=== PATIENT | male | born 1960 | race Caucasian/White ===

== ENCOUNTER 2017-01-16 06:11 | Emergency (ER) | payer OTHER ==
[~2017-01-16] VITALS: Ht 182.9 cm; Wt 91.6 kg
[2017-01-16 06:19] VITALS: Ht 182.9 cm; Wt 91.6 kg
[2017-01-16] MEDS ORDERED: SODIUM CHLORIDE 0.9% 1000ML 2,000 ML IV STA (06:39)
[2017-01-16] MEDS ORDERED: ONDANSETRON 8 MG/54 ML D5W IV STA (06:39)
[2017-01-16] MEDS ORDERED: FAMOTIDINE 20MG/102 ML D5W IV STA (06:40)
[2017-01-16 06:52] LABS: URINE APPEARANCE CLEAR (CLEAR); URINE BILIRUBIN NEG (NEG); URINE COLOR YELLOW; URINE NITRITE NEG (NEG); URINE PH 5.5 (4.5-7.5); URINE SPECIFIC GRAVITY 1.039 (1.000-1.030); UROBILINOGEN NEG (NEG)
[2017-01-16 06:53] LABS: MANUAL MICROSCOPIC REQUIRED? NO; REVIEW REQ? NO
[2017-01-16 06:53] LABS: BASO % 0.2 %; BASO ABS # 0.02 K/uL (0-0.2); COMPLETE YES; EOS % 0.5 %; HEMATOCRIT 46.9 % (42-52); IG% 0.3 %; LYMPH % 14.1 %; LYMPH ABS # 1.68 K/uL (1.2-3.4); MEAN CELL VOLUME 88.5 fL (80-100); MEAN CORPUSCULAR HEMOGLOBIN 28.9 pg (25-34); MEAN CORPUSCULAR HGB CONC 32.6 g/dl (32-36); MEAN PLATELET VOLUME 10.7 fL (7.4-10.4); MONO % 4.9 %; PLATELET COUNT 284 K/uL (130-400); WHITE BLOOD COUNT 11.95 K/uL (4.8-10.8)
[2017-01-16] MEDS ORDERED: LIRA18IN SQ (06:53)
[2017-01-16] MEDS ORDERED: EMPA1TAB PO (06:55)
[2017-01-16] MEDS ORDERED: GABA-113 PO (06:56)
[2017-01-16] MEDS ORDERED: LISI-725 PO (06:56)
[2017-01-16] MEDS ORDERED: DiphenhydrAMINE HCL 50 MG/ML VIAL IV STA (07:09)
[2017-01-16] MEDS ORDERED: METOCLOPRAMIDE HCL INJ 5 MG/ML 2 ML VIAL IV STA (07:09)
[2017-01-16 07:11] LABS: BUN/CREATININE RATIO 13.9 (10-20); CALCIUM 9.8 mg/dl (8.5-10.1); CREATININE 1.5 mg/dl (0.60-1.40)
[2017-01-16] MEDS ORDERED: SODIUM CHLORIDE 0.9% 1000ML 1,000 ML IV STA ×2 (07:29→14:55)
[2017-01-16] MEDS ORDERED: OPTIRAY 320 IV PRN (15:15)
--- NOTE | 2017-01-16 15:53 | DIAGNOSTIC IMAGING REPORT ---
CT OF THE ABDOMEN AND PELVIS WITH CONTRAST CLINICAL HISTORY: Upper abdominal pain and vomiting. COMPARISON STUDY: None. TECHNIQUE: Following IV administration of 118 mL of Optiray-320, axial images of the abdomen and pelvis were obtained from the lung bases to the proximal femurs. Images were reviewed in the axial, sagittal, and coronal planes. IV contrast was administered without complication. CT DOSE: 616.61 mGy.cm FINDINGS: There is suspected fatty infiltration of the liver. The spleen, adrenal glands, kidneys and pancreas are unremarkable. There is no hydronephrosis or hydroureter. There is no perinephric or pericholecystic infiltration. The caliber and wall thickness of small and large bowel are normal. The appendix is normal. There is moderate vascular calcification. IMPRESSION: 1. No acute process within the abdomen or pelvis. 2. Fatty liver. Electronically signed by: Leroy Medina M.D. 01/16/2017 3:52 PM Dictated Date/Time: 01/16/2017 3:45 PM
[2017-01-16] MEDS ORDERED: PANTOprazole SOD 40 MG TAB PO STA (16:13)
[2017-01-16 16:15] VITALS: BP 117/69; PULSE 96; TEMP 36.6; O2SAT 93
[2017-01-16] MEDS ORDERED: ONDANSETRON HOME PACK 4MG OD TAB PO ONE (16:15)
[2017-01-16] MEDS ORDERED: PANT40TA PO (16:19)
[2017-01-16] MEDS ORDERED: ONDA4TAB10 SL (16:19)
--- NOTE | 2017-01-16 16:26 | EMERGENCY ROOM VISIT NOTE ---
History Report prepared by Suri: Stan Garrido Under the Supervision of: Dr. Reynold Vann M.D. First contact with patient: 06:37 Chief Complaint: VOMITING Stated Complaint: VOMITING,DIABETIC Nursing Triage Summary: pt reports vomiting and abd pain since yesterday. pt reports that at 0030 pt started to have bloody emesis. hx DM. History of Present Illness The patient is a 56 year old male who presents to the Emergency Room with complaints of intermittent vomiting that started yesterday. He rates his discomfort as a 6/10 in severity. The patient states that he was experiencing upper abdominal pain, chills, nausea, and vomiting yesterday starting at 1200. He denies taking any other medication other than his daily medications in the morning. The patient reports that today he started to experience hematemesis and describes it as "coffee grounds". He states that he has been dehydrated due to how many times he has been vomiting. The patient states that he has had similar symptoms along with a syncopal episode in the past, but thought it was due to his history of Diabetes Type 2, which he takes insulin for. He reports that he went to the doctors for his previous experience where they diagnosed him with a virus and admitted him for a couple of days. The patient states that these symptoms eventually resolved on their own. He reports that he his last bowel movement was two to three days ago due to his constant constipation from his neuropathy. He admits that he is allergic to Codeine. The patient denies any pain radiating to his back, a history of ulcers, consuming alcohol, LOC, headache, fevers, diaphoresis, visual changes, neck pain, chest pain, breathing difficulties, back pain, melena, hematochezia, urinary symptoms, numbness, weakness, lymphadenopathy, rash, or other complaints. Source of History: patient Onset: yesterday Position: other (global) Symptom Intensity: 6/10 Timing: intermittent Associated Symptoms: + chills, + nausea, + abdominal pain Review of Systems See HPI for pertinent positives and negatives. A total of ten systems were reviewed and were otherwise negative. Past Medical & Surgical Medical Problems: (1) Constipation (2) Diabetes (3) Hypertension Family History Patient reports no known family medical history. Social History Smoking Status: Never Smoker Alcohol Use: none Drug Use: none Current/Historical Medications Scheduled Empagliflozin (Jardiance), Unknown Dose PO DAILY Gabapentin (Neurontin), Unknown Dose PO TID Liraglutide (Victoza), 1.8 ML SQ DAILY Lisinopril (Zestril), Unknown Dose PO DAILY Ondasetron Odt (Zofran Odt), 4 MG SL Q6H Pantoprazole (Protonix), 40 MG PO DAILY Allergies Coded Allergies: Codeine (Verified Allergy, Unknown, unsure, young, 01/16/17) Physical Exam Vital Signs Date Time Temp Pulse Resp B/P (MAP) Pulse Ox O2 Delivery O2 Flow Rate FiO2 01/16/17 15:08 96 01/16/17 13:29 103 15 117/69 93 Room Air 01/16/17 12:00 105 20 119/78 97 Room Air 01/16/17 11:05 111 17 116/61 92 Room Air 01/16/17 10:00 113 13 111/74 94 Room Air 01/16/17 09:00 114 14 108/68 93 Room Air 01/16/17 08:08 91 15 103/57 91 Room Air 01/16/17 07:16 108 01/16/17 07:06 108 16 155/92 92 Room Air 01/16/17 06:19 36.6 114 20 140/82 99 Room Air Physical Exam GENERAL: Awake, alert, non ill appearing, no acute distress HEAD: Normocephalic, atraumatic. No edema. EYES: Normal conjunctiva. Sclera non-icteric. OROPHARYNX: Lips, tongue, and mucosa unremarkable. No erythema or exudate. NECK: Supple. No nuchal rigidity. FROM. No adenopathy. RESPIRATORY: CTA bilaterally. No wheezes rales or rhonchi. CARDIAC: Borderline tachycardic rate, normal rhythm. ABDOMEN: Soft, non distended. epigastric tenderness to palpation. No rebound or guarding. MUSCULOSKELETAL: Atraumatic. No edema. NEURO: Normal sensorium. SKIN: No rash or jaundice noted Medical Decision & Procedures Laboratory Results 01/16/17 06:30 Red Blood Count 5.30, Mean Corpuscular Volume 88.5, Mean Corpuscular Hemoglobin 28.9, Mean Corpuscular Hemoglobin Concent 32.6, Mean Platelet Volume 10.7, Neutrophils (%) (Auto) 80.0, Lymphocytes (%) (Auto) 14.1, Monocytes (%) (Auto) 4.9, Eosinophils (%) (Auto) 0.5, Basophils (%) (Auto) 0.2, Neutrophils # (Auto) 9.57, Lymphocytes # (Auto) 1.68, Monocytes # (Auto) 0.59, Eosinophils # (Auto) 0.06, Basophils # (Auto) 0.02 01/16/17 06:30 Test 01/16/17 06:30 01/16/17 06:31 01/16/17 06:35 White Blood Count 11.95 K/uL (4.8-10.8) Red Blood Count 5.30 M/uL (4.7-6.1) Hemoglobin 15.3 g/dL (14.0-18.0) Hematocrit 46.9 % (42-52) Mean Corpuscular Volume 88.5 fL (80-100) Mean Corpuscular Hemoglobin 28.9 pg (25-34) Mean Corpuscular Hemoglobin Concent 32.6 g/dl (32-36) Platelet Count 284 K/uL (130-400) Mean Platelet Volume 10.7 fL (7.4-10.4) Neutrophils (%) (Auto) 80.0 % Lymphocytes (%) (Auto) 14.1 % Monocytes (%) (Auto) 4.9 % Eosinophils (%) (Auto) 0.5 % Basophils (%) (Auto) 0.2 % Neutrophils # (Auto) 9.57 K/uL (1.4-6.5) Lymphocytes # (Auto) 1.68 K/uL (1.2-3.4) Monocytes # (Auto) 0.59 K/uL (0.11-0.59) Eosinophils # (Auto) 0.06 K/uL (0-0.5) Basophils # (Auto) 0.02 K/uL (0-0.2) RDW Standard Deviation 47.2 fL (36.4-46.3) RDW Coefficient of Variation 14.6 % (11.5-14.5) Immature Granulocyte % (Auto) 0.3 % Immature Granulocyte # (Auto) 0.03 K/uL (0.00-0.02) Anion Gap 12.0 mmol/L (3-11) Est Creatinine Clear Calc Drug Dose 61.8 ml/min Estimated GFR () 60.3 Estimated GFR (Non- 52.0 BUN/Creatinine Ratio 13.9 (10-20) Calcium Level 9.8 mg/dl (8.5-10.1) Total Bilirubin 0.7 mg/dl (0.2-1) Direct Bilirubin 0.1 mg/dl (0-0.2) Aspartate Amino Transf (AST/SGOT) 18 U/L (15-37) Alanine Aminotransferase (ALT/SGPT) 30 U/L (12-78) Alkaline Phosphatase 90 U/L (45-117) Total Protein 8.9 gm/dl (6.4-8.2) Albumin 4.5 gm/dl (3.4-5.0) Lipase 185 U/L (73-393) Bedside Glucose 205 mg/dl (70-99) Urine Color YELLOW Urine Appearance CLEAR (CLEAR) Urine pH 5.5 (4.5-7.5) Urine Specific [place] 1.039 (1.000-1.030) Urine Protein NEG (NEG) Urine Glucose (UA) 3+ (NEG) Urine Ketones 1+ (NEG) Urine Occult Blood NEG (NEG) Urine Nitrite NEG (NEG) Urine Bilirubin NEG (NEG) Urine Urobilinogen NEG (NEG) Urine Leukocyte Esterase NEG (NEG) Laboratory results reviewed by me Medications Administered Medications (Trade) Dose Ordered Sig/Abdi Route Start Time Stop Time Status Last Admin Dose Admin Sodium Chloride 2,000 ml @ 999 mls/hr Q2H1M STAT IV 01/16/17 06:39 01/16/17 08:39 DC 01/16/17 06:42 999 MLS/HR Ondansetron HCl (Zofran 8mg Iv) 8 mg NOW STAT IV 01/16/17 06:39 01/16/17 06:40 DC 01/16/17 06:47 8 MG Famotidine (Pepcid 20mg/100 ml) 20 mg ONE STAT IV 01/16/17 06:40 01/16/17 06:41 DC 01/16/17 07:02 20 MG Metoclopramide HCl (Reglan Inj) 10 mg NOW STAT IV 01/16/17 07:09 01/16/17 07:10 DC 01/16/17 07:16 10 MG Diphenhydramine HCl (Benadryl Inj) 12.5 mg NOW STAT IV 01/16/17 07:09 01/16/17 07:10 DC 01/16/17 07:17 12.5 MG Sodium Chloride 1,000 ml @ 200 mls/hr Q5H STAT IV 01/16/17 07:29 01/16/17 12:28 DC 01/16/17 07:29 200 MLS/HR Sodium Chloride 1,000 ml @ 125 mls/hr Q8H STAT IV 01/16/17 14:55 01/16/17 22:54 01/16/17 15:04 125 MLS/HR ECG Indication: vomiting Rate (beats per minute): 103 Rhythm: sinus tachycardia Findings: no acute ischemic change, no ectopy ED Course 0636: The patient was evaluated in room B02. A complete history and physical exam was performed. 0639: Ondansetron HCl 8 mg IV, Sodium Chloride 2000 ml @ 999 mls/hr IV. 0640: Famotidine 20 mg IV. 0700: I reevaluated the patient and he is resting comfortably. He reports that he is still experiencing nausea. I ordered more medication to relieve his symptoms. 0709: Benadryl Injection 12.5 mg IV, Reglan Injection 10 mg IV. 0729: Sodium Chloride 1000 ml @ 200 mls/hr IV. 0802: I reevaluated the patient and he is resting comfortably. 0951: I reevaluated the patient and he states that his nausea is resolving. 1058: I reevaluated the patient and he reports no nausea or abdominal pain. He requests ice chips. 1332: I reevaluated the patient and he is resting comfortably. I will order clear liquids for him and check his blood sugar. 1445: Sodium Chloride 1000 ml @ 125 mls/hr IV. 1448: I reevaluated the patient and his nausea is better, but there is still abdominal pain. He would like to have a ct scan done. 1600: The patient was reassessed. He is doing well. CT imaging negative. Patient feels comfortable being discharged. He was given a dose of oral Protonix and a Zofran home pack. Prescriptions were given for the same. Medical Decision Medication Reconciliation: I attest that I have personally reviewed the patient' s current medication list Patient was found to have a slightly elevated blood pressure due to circumstances. I do not believe that the patient requires emergent hypertension monitoring. Triage Nursing notes reviewed. The patient's presentation and history were concerning for vomiting. Etiologies such as gastroenteritis, food borne illness, infections, obstruction , pancreatitis, appendicitis, diverticulitis, inflammatory bowel disease, GI bleed, biliary pathology, toxicologic as well as others were entertained. The patient was evaluated. He is very nauseated. He is tachycardic. He has been vomiting for 24 hours and notes a coffee-ground appearance. He denied any apurva hematemesis. The patient had some mild epigastric tenderness. He was given 2 L of normal saline, 8 mg of Zofran, and Pepcid IV. On reassessment still nauseated. Patient was given Reglan and Benadryl IV for additional nausea. His ECG was nonischemic. Unremarkable chemistry panel except for mild hyperglycemia. He had a slight leukocytosis on CBC. LFTs and lipase were unremarkable. The patient was allowed to rest. He was given additional hydration. He had an oral challenge and did well with this as far as any nausea and vomiting. He still had some upper abdominal pain. He was sent to CT imaging and this did not reveal any acute findings. He notes a history of a similar event. He thinks that he may have had a virus at that time. 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 Gastritis or ulcer disease is a possibility. The patient was given a dose of Protonix. He' ll be given a Zofran home pack. He is advised not to drive today. He was given a work note for this. As he is doing well and has been observed for over 10 hours in the emergency department believed that he can safely go to a hotel room and continue treatment as an outpatient. He felt very comfortable with this plan. He will resume his driving tomorrow. If he worsens in any way he will come back to the Emergency Room. He'll follow-up promptly with his family doctor when he returns home. I did discuss having a conversation about a GI referral with his family doctor. The patient was in agreement. His symptoms were markedly improved prior to discharge. Impression Primary Impression: Vomiting Additional Impression: Upper abdominal pain Scribe Attestation The scribe's documentation has been prepared under my direction and personally reviewed by me in its entirety. I confirm that the note above accurately reflects all work, treatment, procedures, and medical decision making performed by me. Departure Information Dispostion Home / Self-Care Prescriptions Ondasetron Odt (ZOFRAN ODT) 4 Mg Tab 4 MG SL Q6H for Nausea, #6 TAB Prov: Reynold Vann MD 01/16/17 Pantoprazole (Protonix) 40 Mg Tab 40 MG PO DAILY, #14 TAB Prov: Reynold Vann MD 01/16/17 Referrals No Doctor, Assigned (PCP) Patient Instructions My [facility] Additional Instructions Protonix 40 mg daily for the next 2 weeks. Discuss continuation of this medication with your doctor. Zofran 4 mg oral dissolving tablets: take one tablet and allow it to melt in your mouth every 4 hours as needed for nausea. Tylenol: Take 1000 mg every 6 hours as needed for pain. Do not take more than 3000 mg in a 24 hour period. Rest. Drink plenty of fluids. Avoid ibuprofen or aspirin products. DO NOT drive, drink alcohol, operate machinery, or perform dangerous activities today. You were given medications in the ER that can affect your ability to safely function or operate a vehicle. Rest and drink plenty of fluids as tolerated. Slow sips of water or sports drinks are recommended instead of large amounts all at once. Continue current medications. Once your stomach is settled start with a clear liquid diet (jello, soup broth, etc.) and then advance as tolerated. You should avoid full, heavy meals for about 24 hrs from the time your symptoms resolved. No driving 01/16/2017. Resume normal work 01/17/2017. Return to the ER immediately for worsening or persistent abdominal pain, vomiting, fevers, chest pains, difficulty breathing, black or bloody stools, worsening of your condition, or as needed. Follow up with your primary physician when you return home for a recheck of your current condition. Problem Qualifiers
== END 2017-01-16 16:15 | disposition home or self-care (01) ==
LOC: C.EDB 06:14
DX: R11.2 Nausea with vomiting, unspecified (principal); R10.10 Upper abdominal pain, unspecified; E11.21 Type 2 diabetes mellitus with diabetic nephropathy; I10 Essential (primary) hypertension; K59.00 Constipation, unspecified; R00.0 Tachycardia, unspecified